=== PATIENT | female | born 1965 | race Caucasian/White ===

== ENCOUNTER → 2017-01-13 | Outpatient (CLI) | payer BC ==
[~2017-01-13] MED LIST: ANAS1TAB PO; CHOL200024 PO; HYDR-4072 PO; LEVO88TA7 PO; MELO-267 PO; VENL75TA4 PO
[2017-01-13 08:56] LABS: BASOPHILS % (AUTO) 0.3 % (0-2); EOSINOPHILS # (AUTO) 0.1 T/MM3 (0-0.5); EOSINOPHILS % (AUTO) 0.6 % (0-4); HCT - HEMATOCRIT 40.3 % (36-46); HGB - HEMOGLOBIN 12.9 GM/DL (12-16); IMMATURE GRANULOCYTE # (AUTO) 0.02 T/MM3 (0.00-0.03); IMMATURE GRANULOCYTE % (AUTO) 0.2 % (0.0-0.5); LYMPHOCYTES # (AUTO) 4.1 T/MM3 (1-4.8); MEAN CORPUSCULAR HGB 30.3 UUG (26-34); MEAN CORPUSCULAR VOLUME 94.6 UM3 (80-100); MONOCYTES # (AUTO) 0.6 T/MM3 (0-0.8); NEUTROPHILS #(AUTO)-ABSOLUTE 5.7 T/MM3 (1.8-7.7); NEUTROPHILS % (AUTO) 53.9 % (33-66); RED BLOOD COUNT 4.26 M/MM3 (4.00-5.20); WBC - WHITE BLOOD COUNT 10.5 T/MM3 (4.5-11.0)
[2017-01-13 09:05] LABS: ALBUMIN 4.5 G/DL (3.5-5.0); ALBUMIN/GLOBULIN RATIO 1.6 RATIO (1.1-2.2); ALKALINE PHOSPHATASE 44 U/L (38-126); ALT (SGPT) 35 U/L (9-52); ANION GAP 12 MEQ/L (5-15); AST (SGOT) 24 U/L (14-36); BUN/CREATININE RATIO 36 RATIO (6-26); CALCIUM 9.3 MG/DL (8.4-10.2); CHLORIDE 108 MEQ/L (98-107); CO2 - CARBON DIOXIDE 28 MEQ/L (22-30); CREATININE 0.8 MG/DL (0.7-1.2); GLOMERULAR FILTRATION RATE 76; GLUCOSE 80 MG/DL (65-110); LDH 381 U/L (313-618); MAGNESIUM 2.4 MG/DL (1.6-2.3); SODIUM 148 MEQ/L (134-144); TOTAL PROTEIN 7.4 G/DL (6.3-8.2)
[2017-01-13 09:22] LABS: PHOSPHORUS 2.2 MG/DL (2.5-4.5)
[2017-01-13 09:41] LABS: CA 27-29 CALCULATED 14.7 U/ML (0-37.7)
== END ==
LOC: LAB 08:34
PROVIDERS: ATTEND Internal Medicine Hematology & Oncology
DX: C50.411 Malignant neoplasm of upper-outer quadrant of right female breast (principal)
CPT/HCPCS: 36415; 80053; 82378; 83615; 83735; 84100; 85025; 86300

== ENCOUNTER 2017-06-30 05:19 | Inpatient (IN) ==
[2017-06-30 05:48] VITALS: BMI 24.5
[2017-06-30] MEDS ORDERED: LIDOCAINE 1% (10mg/ml) 2mL INJ PF SDV ID ONE (06:00)
[2017-06-30] MEDS ORDERED: NOZIN NASAL SWAB NAS ONE ×2 (06:00→09:57)
[2017-06-30] MEDS ORDERED: ONDANSETRON 4 MG/2 ML INJECTION IVP ONE (06:00)
[2017-06-30] MEDS ORDERED: ACETAMINOPHEN 500 MG TABLET PO ONE (06:00)
[2017-06-30] MEDS ORDERED: MELOXICAM 15 MG TABLET PO ONE (06:00)
[2017-06-30] MEDS ORDERED: DEXAMETHASONE 4 MG/ML INJECTION IVP ONE (06:00)
[2017-06-30] MEDS ORDERED: METOCLOPRAMIDE 10mg/2ml INJECTION IVP ONE (06:00)
[2017-06-30] MEDS ORDERED: FAMOTIDINE PB 20 MG/50 ML BAG IV ONE (06:00)
[2017-06-30] MEDS ORDERED: TRANEXAMIC ACID 1,000 MG in NS 100 ML IV ONE ×2 (06:00→07:00)
[2017-06-30] MEDS ORDERED: CEFAZOLIN 1 G INJECTION IVP ONE (06:19)
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
[2017-06-30] MEDS ORDERED: MIDAZOLAM 2mg/2ml INJECTION ONE (06:58)
[2017-06-30] MEDS ORDERED: VANCOMYCIN 1,000 MG INJECTION ONE (07:30)
[2017-06-30] MEDS ORDERED: PROPOFOL 500 MG/50 ML VIAL IV ONE (07:37)
[2017-06-30] MEDS ORDERED: EPINEPHrine PF 0.25 MG, BUPIVACAINE 0.25% PF 30 ML, MORPHINE SULFATE 15 MG, KETOROLAC I... OPSITE ONE (08:00)
[2017-06-30] MEDS ORDERED: ROPIVACAINE 0.5% (5mg/ml) 30ml INJ ONE (08:24)
[2017-06-30] MEDS ORDERED: VANCOMYCIN 1,000 MG INJECTION IAR ONE (08:29)
[2017-06-30] MEDS ORDERED: PROPOFOL 60 ML ONE (08:43)
--- NOTE | 2017-06-30 08:47 | Operative Note ---
- Procedure Preoperative Diagnosis: Right knee primary degenerative joint disease Postoperative Diagnosis: Same as preoperative diagnosis. Surgeon: Maite Sheikh MD Batch Weigher: Marko Bowers Complications: None. Anesthesia: Spinal. Estimated Blood Loss: See Anesthesia Record. Fluids: Please see Anesthesia Record. Description of Procedure: Mrs. Mann and her right knee were identified and marked in the preoperative holding area. She was brought back to the operating suite after a saphenous nerve block was placed in the preoperative holding area. Spinal anesthetic was administered and she was placed supine on the operating table. The right lower extremity was prepped and draped in my normal sterile fashion. Timeout was performed. The Pole Star robot was used during the surgery. She had a very mild valgus deformity.. A standard anterior midline incision followed by sub-vastus approach was performed. Her previous anterior cruciate ligament graft was no longer competent. There was some remaining fibers attached to the femur. Sutures were present in the tibial tunnel. Anterior fat pad and meniscus were removed. The patella was resurfaced to a size 32. Tibial and femoral arrays were placed both within the original incision. Checkpoints were then placed both in the femur and the tibia. The bone was then registered with the Pole Star robot. Osteophytes were removed and gaps were captured both 90 and 0 with correction. Because of her mild deformity about the knee with the robotic software was done simply by adding 1 of valgus to the femoral implant. We had a 18 mm gaps throughout. The Pole Star robotic arm was then used to assist with the bone cuts. Posterior osteophytes and remaining meniscus were removed. Trial components were placed. We used a 3 femur and a 2 tibia with a 9 mm spacer. She tracked well and was well balanced throughout range of motion. The leg was exsanguinated and the tourniquet inflated to 250 mmHg. The bone was prepared for cementing and components were cemented into place and allowed to cure in extension. The tourniquet was let down and hemostasis obtained with electrocautery. The knee was ranged one more time to ensure good stability, balance and patellar tracking. 1 g of vancomycin powder was then placed into the knee joint. The capsulotomy was then closed with #1 Vicryl. I then left my senior administrative assistant to close the subcutaneous tissue with 2-0 Vicryl. Running 4-0 Monocryl will be used in the subcuticular layer. Dermabond will be used on the skin followed by sterile dressing. After drapes are removed patient will be taken to recovery room under the care of anesthesia.
[2017-06-30] MEDS ORDERED: HYDROMORPHONE 2 MG/ML INJECTION ONE (09:04)
--- NOTE | 2017-06-30 09:31 | Anesthesia Procedure Note ---
Peripheral Nerve Blockade - Procedure Physician: Christo Sheikh MD Date: 06/30/17 Surgical Procedure: Right Total Knee Replacement Discussion: Discussed risks/options/alternatives of anesthesia and questions answered. Patient consents. Nursing pain assessment noted. Block Start: 09:09 Block Stop: 09:12 Blocked Employed: Adductor Canal Indication: Post-Operative Pain Approach: Right Side Confirmed Position: Supine Patient: Consent, Risks/Benefits Discussed, Informed, Post Block Act. Discussed IV Sedation: No Sedation: Awake Initial Vital Signs: Temperature 98.2 F 06/30/17 05:48 Temperature Source Oral 06/30/17 05:48 Pulse Rate 71 06/30/17 05:48 Respiratory Rate 16 06/30/17 05:48 Blood Pressure 133/70 06/30/17 05:48 Blood Pressure Mean 91 06/30/17 05:48 Blood Pressure Position Sitting 06/30/17 05:48 Pulse Oximetry 97 06/30/17 05:48 Oxygen Delivery Method 06/30/17 05:48 Post Vital Signs: Temperature 99.8 F 06/30/17 09:04 Pulse Rate 71 06/30/17 09:04 Respiratory Rate 16 06/30/17 09:04 Blood Pressure 98/51 06/30/17 09:04 Pulse Oximetry 97 06/30/17 09:04 Initial Pain Pain Score: 8 Post Block Pain Score: 5 Prep: Chlorhexadine/ETOH Ultrasound Used?: Yes - Injectate Ropivacaine (%): 0.5 Ropivacaine (mL): 25 Was Epi 1:200,000 Used?: No Injection: Injection made incrementally with constant monitoring and aspiration every ml
--- NOTE | 2017-06-30 09:32 | Anesthesia Postoperative Note ---
- Date and Time Date: 06/30/17 Time: 09:31 - Status Patient Participated in Evaluation: Patient Participated in Person Vital Signs: Temperature 99.8 F 06/30/17 09:04 Pulse Rate 71 06/30/17 09:04 Respiratory Rate 16 06/30/17 09:04 Blood Pressure 98/51 06/30/17 09:04 Pulse Oximetry 97 06/30/17 09:04 Respiratory Function: Airway Patent Cardiovascular Function: Regular Pulse EKG: Sinus Rhythm Mental Status: Alert and Oriented Pain Intensity: 5 Hydration: IV Infusing Complications During Recover: None Apparent - Follow-Up Instructions Instructions: Per Surgeon
--- NOTE | 2017-06-30 09:39 | XRay Report ---
Indication: postoperative image PROCEDURE: XR knee RT 2V: Encounter: Initial Comparison: May 30, 2017 Findings: Postoperative changes of right total knee replacement are seen. There is expected postoperative subcutaneous gas. No evidence of hardware failure or acute fracture. No retained radiopaque surgical instruments or sponges. Overlying material causing artifact. Prior ACL reconstruction. Impression: New right total knee prosthesis without evidence of immediate complication. .
[2017-06-30] MEDS ORDERED: DiphenhydrAMINE 50 MG/ML INJECTION IVP PRN (09:57)
[2017-06-30] MEDS ORDERED: LORazepam 1 MG TABLET PO PRN (09:57)
[2017-06-30] MEDS ORDERED: DiphenhydrAMINE 25 MG CAPSULE PO PRN (09:57)
[2017-06-30] MEDS ORDERED: ACETAMINOPHEN 325 MG TABLET PO SCH (09:57)
[2017-06-30] MEDS ORDERED: TRAMADOL 50 MG TABLET PO PRN (09:57)
[2017-06-30] MEDS ORDERED: ONDANSETRON 4 MG/2 ML INJECTION IVP PRN (09:57)
[2017-06-30] MEDS: NS 1,000 ML IV SCH (10:09)
[2017-06-30] MEDS ORDERED: FALL RISK - PHARMACY CONSULT MC ONE (10:15)
[2017-06-30] MEDS: DOCUSATE SODIUM 100 MG CAPSULE PO SCH ×2 (11:17→22:11)
[2017-06-30] MEDS: POLYETHYL GLYCOL 3350 17gm PACKET PO SCH (11:18)
[2017-06-30] MEDS: MODAFINIL 100 MG TABLET PO SCH (11:33)
[2017-06-30] MEDS: VENLAFAXINE 75 MG TABLET PO SCH ×2 (11:33→22:12)
[2017-06-30] MEDS: LEVOTHYROXINE 75 MCG TABLET PO SCH (11:33)
[2017-06-30] MEDS: ANASTROZOLE 1 MG TABLET PO SCH (12:42)
[2017-06-30] MEDS: HYDROCODONE/APAP 7.5 MG/325 MG TABLET PO PRN ×2 (12:42→22:10)
[2017-06-30] MEDS: NOZIN NASAL SWAB NAS SCH ×2 (14:28→22:11)
[2017-06-30] MEDS: DEXAMETHASONE 4 MG/ML INJECTION IVP SCH ×2 (14:28→22:10)
[2017-06-30] MEDS: CEFAZOLIN 2 G in NS 100 ML IV SCH ×2 (14:28→22:12)
[2017-06-30] MEDS ORDERED: SALINE FLUSH 10ml SYRINGE IV PRN (18:17)
[2017-06-30] MEDS ORDERED: LR 1,000 ML IV SCH (18:30)
[2017-06-30] MEDS ORDERED: SENNOSIDES 8.6 MG TABLET PO SCH (21:00)
[2017-06-30] MEDS: ASPIRIN *EC* 81 MG TABLET PO SCH (22:12)
[2017-07-01] MEDS: NS 1,000 ML IV SCH (01:02)
[2017-07-01] MEDS ORDERED: SENNOSIDES 8.6 MG TABLET PO PRN (06:22)
[2017-07-01] MEDS: NOZIN NASAL SWAB NAS SCH (06:34)
[2017-07-01] MEDS: LEVOTHYROXINE 75 MCG TABLET PO SCH (06:34)
[2017-07-01] MEDS ORDERED: MELOXICAM 15 MG TABLET PO SCH (09:00)
[2017-07-01] MEDS: VENLAFAXINE 75 MG TABLET PO SCH (09:12)
[2017-07-01] MEDS: ANASTROZOLE 1 MG TABLET PO SCH (09:12)
[2017-07-01] MEDS: DOCUSATE SODIUM 100 MG CAPSULE PO SCH (09:12)
[2017-07-01] MEDS: MODAFINIL 100 MG TABLET PO SCH (09:12)
[2017-07-01] MEDS: ASPIRIN *EC* 81 MG TABLET PO SCH (09:13)
[2017-07-01] MEDS: POLYETHYL GLYCOL 3350 17gm PACKET PO SCH (09:14)
--- NOTE | 2017-07-01 10:11 | Orthopedic Progress Note ---
Date: Subjective/Severity of Illness: Doing very well Pain controlled on [place]. No complaints or concerns. Orthopedic Objective PO Vital signs: Temperature 96.6 F L 07/01/17 08:00 Pulse Rate 78 07/01/17 08:00 Respiratory Rate 14 07/01/17 08:00 Blood Pressure 123/69 07/01/17 08:00 Pulse Oximetry 98 07/01/17 08:00 Height and Weight: Height 5 ft 5 in Weight 154 lb 8.705 oz Body Mass Index 24.5 - Constitutional General Appearance: Present: alert, no acute distress - Extremities Exam Extremities: Present: pulses intact. Absent: calf tenderness - Surgical Site Incision: Mepilex dressing intact, no drainage - Neurological Exam Present: no deficits - Labs Result Diagrams: 07/01/17 04:00 07/01/17 04:00 Abnormal lab results 07/01/17 07/01/17 Range/Units 04:00 04:00 WBC 17.4 H D (4.5-11.0) T/MM3 RBC 3.42 L (4.00-5.20) M/MM3 Hgb 10.5 L D (12-16) GM/DL Hct 32.7 L D (36-46) % Creatinine 0.6 L (0.7-1.2) MG/DL Glucose 138 H (65-110) MG/DL H & H 06/30/17 07/01/17 Range/Units 05:59 04:00 Hgb 12.5 10.5 L D (12-16) GM/DL Hct 38.9 32.7 L D (36-46) % Orthopedic Assessment and Plan (1) Primary osteoarthritis of right knee Status: Acute Assessment and Plan: Current anti-coagulation protocol for VTE prophylaxis. SCD's. PT/OT services to improve independent function. Discharge Planning per Case Management. - Anticoagulation Therapy Anticoagulation: ASA 81 mg PO BID x6 weeks Hospital Course Summary Disclaimer: The visit summary below is not to be considered part of the above Progress Note.
[2017-07-01] MEDS: HYDROCODONE/APAP 7.5 MG/325 MG TABLET PO PRN (10:23)
--- NOTE | 2017-07-01 10:55 | Discharge Summary ---
Orthopedic Discharge Info Date of admission: 06/30/17 05:19 Primary care physician: Williams Mcmillan DO Attending Physician: Christo Sheikh MD Consults: 06/30/17 05:32 Consult to Anesthesiology [CONS] Routine Consulting Provider: WILMER Clay Reason For Exam: Preoperative Assessment 06/30/17 09:57 Case Management Consult [CONS] Routine Reason For Exam: Discharge Planning DME-Walker [CONS] Routine Height: 5 ft 5 in Weight: 147 lb 0.773 oz Comment: change dressing in 2 weeks Total Joint Outpatient Therapy [CONS] Routine Comment: change dressing in 2 weeks - Discharge Diagnosis (1) Primary osteoarthritis of right knee Status: Acute - Procedures Procedures: Right TKA - Laboratory Result Diagrams: 07/01/17 04:00 07/01/17 04:00 Laboratory: Abnormal lab results 07/01/17 07/01/17 Range/Units 04:00 04:00 WBC 17.4 H D (4.5-11.0) T/MM3 RBC 3.42 L (4.00-5.20) M/MM3 Hgb 10.5 L D (12-16) GM/DL Hct 32.7 L D (36-46) % Creatinine 0.6 L (0.7-1.2) MG/DL Glucose 138 H (65-110) MG/DL H & H 06/30/17 07/01/17 Range/Units 05:59 04:00 Hgb 12.5 10.5 L D (12-16) GM/DL Hct 38.9 32.7 L D (36-46) % Orthopedic Discharge HPI - HPI Comments This patient was admitted for elective surgical tx of end stage degenerative joint disease that failed to respond to conservative treatment. Further details of this is found in the admission H&P. Orthopedic Hospital Course Hospital course: 07/01/17 10:52 After appropriate preoperative clearance and signing of operative consent, the patient was given IV antibiotics, according to orthopedic protocol. The patient was taken to the operating room and underwent elective joint arthroplasty. Following surgery, antibiotics were discontinued less than 24 hours according to joint protocol. Appropriate anticoagulants were initiated and SCDs added for DVT prevention. The dressing was clean, dry, and intact. Pain control was obtained via multimodal approach. Bowel motivation addressed with scheduled and PRN medications. Early mobilization was initiated through PT services. Discharge arrangements made by a collaborative effort between the patient and Case Management. Follow-up is scheduled in 2-3 weeks. Discharge instructions given by orthopedic providers and nursing staff at discharge. Discharge condition was good. Ongoing care required?: No - Postoperative Anemia patient received IVF, labs monitored daily, no intervention required, HGB drop- acceptable - Leukocytosis due to preoperative IV Decadron Discharge Plan - Med Rec/Dispo Referrals/Follow Up: Christo Sheikh MD [Physician] - 07/25/17 11:30 am Sarthakuvderek Instructions: [facility] Ortho Postop Instructions Additional Instructions: [facility] ON 07/04/2017 AT 1:15PM FOR PHYSICAL THERAPY EVAL. PLEASE COMPLETE THE PAPERWORK IN THE [facility] FOLDER PRIOR TO THE APPOINTMENT. PHONE [phone] Prescriptions: New Aspirin *EC* [Ecotrin] 81 mg PO BID #84 tablet Hydrocodone/APAP 7.5/325 [[place] 7.5/325] 1 - 2 tab PO Q4H PRN #60 tab PRN Reason: Pain PEG 3350 17gm PACKET [Miralax] 17 gm PO DAILY packet Continue Levothyroxine Tab [Synthroid] 75 mcg PO ACB Meloxicam 15 mg PO DAILY #0 Venlafaxine [Effexor] 75 mg PO BID #0 Modafinil [Provigil] 100 mg PO DAILY Anastrozole 1 mg PO DAILY Discontinued Acetaminophen [Tylenol] 1,000 mg PO Q5H PRN PRN Reason: Pain Acetaminophen/Caffeine [Excedrin Tension Headache Cplt] 1 each PO Q6HPRN PRN PRN Reason: Pain Ultram (Tramadol) 50 mg tablet 50 mg PO Q4-6HPRN PRN PRN Reason: Pain - Disposition 01 Discharged Home, Self-Care
[2017-07-01 11:59] VITALS: BP 128/66; PULSE 92; RESP 18; TEMP 97.9; O2SAT 99
[2017-07-02] MEDS ORDERED: BISACODYL 10 MG SUPPOSITORY RECTALLY SCH (20:00)
== END 2017-07-01 13:15 | disposition home or self-care (01) | DRG 470 ==
LOC: SRG 05:19
PROVIDERS: ADMIT Orthopaedic Surgery; ATTEND Orthopaedic Surgery